=== PATIENT | female | born 1990 | race Caucasian/White ===

== ENCOUNTER 2018-10-12 05:17 | Day surgery (SDC) | payer OTHER ==
[~2018-10-12] VITALS: Ht 172.7 cm; Wt 145.1 kg
[2018-10-12 05:53] LABS: HEMATOCRIT 38.5 % (36.0-48.0); MCHC 33.8 g/dL (31.0-37.0); MCV 85.7 fL (80.0-100.0); MEAN PLATELET VOLUME 11.1 fL (7.4-10.4); RBC 4.49 10x6/uL (4.00-5.40); RDW 14.7 % (11.5-14.5); WBC 7.4 10x3/uL (4.8-10.8)
[2018-10-12] MEDS ORDERED: PROBIOTIC BLEN1 EACH (06:37)
[2018-10-12] MEDS ORDERED: LISINOPRIL20 MG PO (06:37)
[2018-10-12] MEDS ORDERED: GLUCOPHAGE500 MG PO (06:37)
[2018-10-12] MEDS ORDERED: PRENAVITE1 TAB PO (06:37)
[2018-10-12 06:44] VITALS: BP 137/83; Ht 172.7 cm; Wt 145.1 kg
[2018-10-12 06:53] LABS: HCG URINE NEGATIVE (NEGATIVE)
[2018-10-12] MEDS ORDERED: HYDROCODON-ACE1 EAC7 PO (09:00)
--- NOTE | 2018-10-12 13:01 | NUR ---
1027 ANESTHESIA CALLED FOR ADDITIONAL PAIN MEDICATION. PAIN IS MODERATE. PT HAS O2 PER NC ON. ABDOMEN IS SOFT AND DRESSING DRY AND INTACT. ICE PACK TO UPPER RIGHT INCISION. 1200 RECIEVED A FULL LIQ TRAY AND POST OP INSTRUCTIONS. PT STATED SHE GETS ANXOUS AT TIMES AND INCOURAGED BREATHING TECH TO CALM HER PT AND LOWER HER PAIN LEVEL, DR HAMM HERE TO SEE PT. 1230 PT ON RA O2 AND DOING WELL, 1245 IV REMOVED AND PRESSURE HELD DRESSING APPLIED 1300 PT D/C HOME BY W/C
== END 2018-10-12 13:00 | disposition home or self-care (01) ==
LOC: D.OPS 05:17 → D.PAN 08:00 → D.OPS 08:00
PROVIDERS: Anesthesiology; ATTEND Surgery
DX: K80.10 Calculus of gallbladder with chronic cholecystitis without obstruction (principal); E11.9 Type 2 diabetes mellitus without complications; E66.01 Morbid (severe) obesity due to excess calories; Z68.42 Body mass index [BMI] 45.0-49.9, adult; Z01.812 Encounter for preprocedural laboratory examination